=== PATIENT | male | born 1985 | race Caucasian/White ===

== ENCOUNTER 2022-03-17 10:13 | Day surgery (SDC) | payer BC, OTHER ==
[~2022-03-17 10:13] MED LIST: Lactated Ringers 1,000 ML IV SCH; Sodium Chloride 0.9% 10 ML Syringe FLUSH PRN
[2022-03-17] MEDS ORDERED: fentaNYL 100 MCG/2 ML SDV ONE (11:03)
[2022-03-17] MEDS ORDERED: Propofol 200 MG/20 ML SDV ONE ×2 (11:03→12:34)
== END 2022-03-17 14:07 | disposition home or self-care (01) ==
LOC: VM.SDS 10:13
PROVIDERS: ATTEND Family Medicine
DX: K64.9 Unspecified hemorrhoids (principal); I10 Essential (primary) hypertension; R73.9 Hyperglycemia, unspecified; E66.01 Morbid (severe) obesity due to excess calories; G56.00 Carpal tunnel syndrome, unspecified upper limb; Z68.32 Body mass index [BMI] 32.0-32.9, adult; Z80.0 Family history of malignant neoplasm of digestive organs
CPT/HCPCS: 00811; J2704; J3010; J7120